=== PATIENT | female | born 1960 | race Two or more races ===

== ENCOUNTER 2020-08-01 11:40 | Emergency (ER) | payer OTHER ==
[~2020-08-01] VITALS: Ht 167.6 cm; Wt 108.9 kg
[2020-08-01] MEDS ORDERED: cloNIDine HCL 0.1 MG TAB ONE (11:55)
[2020-08-01] MEDS ORDERED: cloNIDine HCL 0.1 MG TAB PO ONE (12:15)
[2020-08-01 13:18] LABS: Basophils # (auto) 0 10 ^3/uL (0-0.2); Basophils % (auto) 0.4 % (0.0-2.0); Eosinophils # (auto) 0.1 10 ^3/uL (0-0.8); Eosinophils % (auto) 1.8 % (0.0-7.0); Hematocrit 45.5 % (36.0-46.0); Hemoglobin 14.2 g/dL (12.2-16.2); Lymphocytes # (auto) 1.6 10 ^3/uL (0.4-5.4); Lymphocytes % (auto) 24.9 % (10.0-50.0); Mean Corpuscular Hemoglobin 28.6 pg (28.0-32.0); Mean Corpuscular Hgb Conc. 31.3 g/dL (32.0-36.0); Mean Corpuscular Volume 91.4 fL (80.0-100.0); Monocytes # (auto) 0.5 10 ^3/uL (0-1.3); Monocytes % (auto) 7.5 % (0.0-12.0); Neutrophils # (auto) 4.1 10 ^3/uL (1.6-8.6); Neutrophils % (auto) 65.4 % (37.0-80.0); Nucleated Red Blood Cells % 0.1 %; Platelet Count (auto) 241 10^3/uL (140-450); Red Blood Cells 4.98 10^6/uL (4.0-5.20); Red Cell Distribution Width 14.6 % (11.8-14.3); White Blood Cell 6.3 10^3/uL (4.4-10.8)
[2020-08-01] MEDS ORDERED: traMADol HCL 50 MG TAB PO ONE (14:45)
[2020-08-01 16:00] VITALS: BP 137/64
[2020-08-01 20:38] LABS: Anion Gap 8 (5-15); BUN/Creatinine Ratio 14.7; Blood Urea Nitrogen 11 mg/dL (7-18); Carbon Dioxide 26 mmol/L (21-32); Chloride 107 mmol/L (98-107); GFR African American 102 mL/min; GFR Non-African American 85 mL/min; Glucose 91 mg/dL (74-106); Sodium 141 mmol/L (136-145)
[2020-08-01 20:39] LABS: Alanine Aminotransferase 35 U/L (13-56); Alkaline Phosphatase 97 U/L (45-117); Aspartate Aminotransferase 23 U/L (15-37); Bilirubin, Total < 0.1 mg/dL (0.2-1.0); Total Protein 7.8 g/dL (6.4-8.2)
[2020-08-01 20:40] LABS: Albumin 3.8 g/dL (3.4-5.0)
== END 2020-08-01 16:12 | disposition home or self-care (01) ==
LOC: ER 11:40
DX: I16.0 Hypertensive urgency (principal); I10 Essential (primary) hypertension; Z90.710 Acquired absence of both cervix and uterus
CPT/HCPCS: 36415; 80053; 84484; 85025; 93005